=== PATIENT | female | born 1985 | race Caucasian/White ===

== ENCOUNTER 2017-04-25 10:08 | Inpatient (IN) | payer OTHER, BC ==
[2017-04-25 11:18] LABS: ADD MAN DIFF? NO
[2017-04-25 11:33] LABS: WHITE BLOOD COUNT 8.3 10^3/ul (4.8-10.8)
[2017-04-25 11:33] LABS: BASOPHILS % 0.4 % (0.0-2.0); EOSINOPHILS # 0.1 10^3/ul (0.0-0.5); HEMATOCRIT 31.6 % (37.0-47.0); HEMOGLOBIN 10.6 g/dl (12.0-16.0); LYMPHOCYTES # 1.9 10^3/ul (0.8-2.9); LYMPHOCYTES % 22.4 % (15.0-51.0); MEAN CORPUSCULAR HEMOGLOBIN 28.4 pg (29.0-33.0); MEAN CORPUSCULAR HGB CONC 33.5 g/dl (32.0-37.0); MEAN CORPUSCULAR VOLUME 84.7 fl (82.0-101.0); MEAN PLATELET VOLUME 10.8 fl (7.4-10.4); MONOCYTE # 0.8 10^3/ul (0.3-0.9); MONOCYTES % 9.1 % (0.0-11.0); NEUTROPHIL # 5.5 10^3/ul (1.6-7.5); PLATELET COUNT 183 10^3/UL (140-415); RED BLOOD COUNT 3.73 10^6/ul (4.20-5.40); RED CELL DISTRIBUTION WIDTH 14.8 % (11.5-14.5)
[2017-04-25 11:45] LABS: INR 0.91; PARTIAL THROMBOPLASTIN TIME 29.7 Sec (25.0-35.0); PROTIME 12.3 Sec (11.9-14.9)
[2017-04-25 12:05] LABS: ALANINE AMINOTRANSFERASE 30 IU/L (13-69); ALBUMIN 3.5 g/dl (3.3-4.9); ALBUMIN/GLOBULIN RATIO 0.97; ALKALINE PHOSPHATASE 145 IU/L (42-121); ANION GAP 11 (8-16); ASPARTATE AMINO TRANSFERASE 23 IU/L (15-46); BILIRUBIN,INDIRECT 0.2 mg/dl (0-1.1); BILIRUBIN,TOTAL 0.2 mg/dl (0.2-1.3); BLOOD UREA NITROGEN 7 mg/dl (7-20); CALCIUM 9.3 mg/dl (8.4-10.2); CARBON DIOXIDE 25 mmol/L (21-31); CHLORIDE 107 mmol/L (97-110); CREATININE 0.76 mg/dl (0.44-1.00); GLUCOSE 84 mg/dl (70-220); POTASSIUM 4.1 mmol/L (3.5-5.1); SODIUM 139 mmol/L (135-144); TOTAL PROTEIN 7.1 g/dl (6.1-8.1); URIC ACID 3.9 mg/dl (3.1-7.9)
[2017-04-25 13:23] LABS: COLLECTION PERIOD 24 hrs
[2017-04-25 13:25] LABS: VOLUME 3200 mls
[2017-04-25 13:37] LABS: COLLECTION PERIOD 24 hrs; CREATININE,URINE RANDOM 37.64 mg/dl (20-320); VOLUME 3400 ml/24hrs
[2017-04-25 13:39] LABS: CREATININE CLEARANCE 116.9 mls/min (84.0-162.0); SCRET 0.76 mg/dl (0.44-1.00)
[2017-04-25] MEDS ORDERED: MISOPROSTOL 200 MCG TAB PR ×2 (14:30→20:30)
[2017-04-25] MEDS ORDERED: OXYTOCIN 30 UNITS/LR 500 ML IV ×3 (14:30→21:30)
[2017-04-25] MEDS ORDERED: METHYLERGONOVINE 0.2 MG INJ IM ×2 (14:30→20:30)
[2017-04-25] MEDS ORDERED: CARBOPROST 250 MCG INJ IM ×2 (14:30→20:30)
[2017-04-25] MEDS ORDERED: CEFAZOLIN 2 GM/50 ML (PMX) 50 ML IVPB (14:30)
[2017-04-25] MEDS: SOD CHLORIDE 0.9% 1,000 ML IV (15:15)
[2017-04-25 18:14] LABS: HEPATITIS B SURFACE ANTIGEN NEGATIVE (NEGATIVE)
[2017-04-25] MEDS: LACTATED RINGER'S 1,000 ML IV ×2 (19:24→20:23)
[2017-04-25] MEDS ORDERED: morphine SULFATE/PF (10 MG/10 ML) INJ (20:11)
[2017-04-25] MEDS ORDERED: METOCLOPRAMIDE 10 MG INJ (20:12)
[2017-04-25] MEDS ORDERED: ONDANSETRON 4 MG INJ (20:12)
[2017-04-25] MEDS ORDERED: KETOROLAC 30 MG INJ (20:12)
[2017-04-25] MEDS: OXYTOCIN 30 UNITS/LR 500 ML IV ×2 (20:23→21:36)
[2017-04-25] MEDS ORDERED: NA PHOSPHATE/BIPHOS 133 ML ENEMA PR (20:30)
[2017-04-25] MEDS: CEFAZOLIN 2 GM/50 ML (PMX) 50 ML IVPB (20:30)
[2017-04-25] MEDS ORDERED: HYDROCODONE/APAP (5/325) TAB PO (20:30)
[2017-04-25] MEDS ORDERED: METHYLERGONOVINE 0.2 MG TAB PO (20:30)
[2017-04-25] MEDS ORDERED: LANOLIN 7 GM TUBE TOP (20:30)
[2017-04-25] MEDS: LABETALOL 100 MG TAB PO (21:00)
[2017-04-25] MEDS: SENNA/DOCUSATE NA (8.6MG/50MG) TAB PO (21:00)
[2017-04-25] MEDS ORDERED: EPHEDrine SULFATE 50 MG/5 ML SYG (21:30)
[2017-04-25] MEDS ORDERED: ONDANSETRON 4 MG INJ IV ×2 (22:00)
[2017-04-25] MEDS: IBUPROFEN 800 MG TAB PO (22:00)
[2017-04-25] MEDS ORDERED: morphine 2 MG INJ IV ×2 (22:00)
[2017-04-25] MEDS ORDERED: morphine (1 MG/ML) 10ML SYRINGE IV ×3 (22:00)
[2017-04-25] MEDS ORDERED: NALOXONE (0.4 MG/ML) INJ IV (22:00)
[2017-04-25] MEDS ORDERED: morphine 4 MG/ML VIAL IV (22:00)
[2017-04-25] MEDS: DIPHENHYDRAMINE 50 MG INJ IV (23:32)
[2017-04-25] MEDS: KETOROLAC 30 MG INJ IV (23:33)
[2017-04-26] MEDS: LACTATED RINGER'S 1,000 ML IV ×3 (04:52→20:23)
[2017-04-26] MEDS: CEFAZOLIN 2 GM/50 ML (PMX) 50 ML IVPB ×3 (04:58→20:40)
[2017-04-26] MEDS: KETOROLAC 30 MG INJ IV ×3 (05:15→18:05)
[2017-04-26] MEDS: DIPHENHYDRAMINE 50 MG INJ IV (05:38)
[2017-04-26] MEDS: IBUPROFEN 800 MG TAB PO ×3 (06:00→22:09)
[2017-04-26] MEDS: SENNA/DOCUSATE NA (8.6MG/50MG) TAB PO ×2 (08:43→20:40)
[2017-04-26] MEDS: GUAIFENESIN/DM (SR) TAB PO (08:43)
[2017-04-26 08:50] LABS: ADD MAN DIFF? NO
[2017-04-26] MEDS: LABETALOL 100 MG TAB PO ×2 (08:53→20:40)
[2017-04-26 09:02] LABS: BASOPHILS % 0.3 % (0.0-2.0); EOSINOPHILS # 0.1 10^3/ul (0.0-0.5); EOSINOPHILS % 0.7 % (0.0-7.0); HEMATOCRIT 30.2 % (37.0-47.0); HEMOGLOBIN 10.2 g/dl (12.0-16.0); LYMPHOCYTES # 2.1 10^3/ul (0.8-2.9); LYMPHOCYTES % 27.9 % (15.0-51.0); MEAN CORPUSCULAR HEMOGLOBIN 28.4 pg (29.0-33.0); MEAN CORPUSCULAR HGB CONC 33.8 g/dl (32.0-37.0); MEAN CORPUSCULAR VOLUME 84.1 fl (82.0-101.0); MEAN PLATELET VOLUME 10.9 fl (7.4-10.4); MONOCYTE # 0.5 10^3/ul (0.3-0.9); MONOCYTES % 5.9 % (0.0-11.0); NEUTROPHIL # 4.9 10^3/ul (1.6-7.5); NEUTROPHILS % 64.4 % (39.0-77.0); PLATELET COUNT 177 10^3/UL (140-415); RED BLOOD COUNT 3.59 10^6/ul (4.20-5.40); RED CELL DISTRIBUTION WIDTH 14.5 % (11.5-14.5)
[2017-04-26 09:02] LABS: WHITE BLOOD COUNT 7.6 10^3/ul (4.8-10.8)
[2017-04-26 15:10] LABS: RAPID PLASMA REAGIN NONREACTIVE (NR)
[2017-04-26] MEDS: PROMETHAZINE/CODEINE 5ML CUP PO (19:22)
[2017-04-26] MEDS: AZITHROMYCIN 250 MG TAB PO (20:39)
[2017-04-26] MEDS: HYDROCODONE/APAP (5/325) TAB PO (22:09)
[2017-04-26] MEDS: DIPHENHYDRAMINE 25 MG CAP PO (22:10)
[2017-04-26] MEDS: SALINE 0.65% 45 ML NAS SPRAY NASAL (22:11)
[2017-04-27] MEDS: GUAIFENESIN/DM (SR) TAB PO ×3 (01:11→20:32)
[2017-04-27] MEDS: LACTATED RINGER'S 1,000 ML IV ×3 (04:23→20:23)
[2017-04-27] MEDS: IBUPROFEN 800 MG TAB PO ×3 (05:36→22:06)
[2017-04-27] MEDS: AZITHROMYCIN 250 MG TAB PO (08:53)
[2017-04-27] MEDS: SENNA/DOCUSATE NA (8.6MG/50MG) TAB PO ×2 (09:00→21:00)
[2017-04-27] MEDS: LABETALOL 100 MG TAB PO ×2 (09:00→20:31)
[2017-04-27] MEDS: PROMETHAZINE/CODEINE 5ML CUP PO (16:34)
[2017-04-28] MEDS: IBUPROFEN 800 MG TAB PO (05:31)
[2017-04-28] MEDS: SENNA/DOCUSATE NA (8.6MG/50MG) TAB PO (09:00)
[2017-04-28] MEDS: GUAIFENESIN/DM (SR) TAB PO (10:09)
[2017-04-28] MEDS: LABETALOL 100 MG TAB PO (10:10)
[2017-04-28] MEDS: AZITHROMYCIN 250 MG TAB PO (10:10)
[2017-04-28] MEDS: DIPHTH/TET/ACEL PERTUSS (ADULT) 0.5 ML VIAL IM* (11:14)
== END 2017-04-28 13:10 | disposition home or self-care (01) | DRG 766 ==
LOC: OBT 10:08 → PP1 04-26 00:06 → L-D 10:08 → OBT 14:06 → L-D 14:07
PROC: 10D00Z1 Extraction of Products of Conception, Low, Open Approach (ICD-10-PCS; principal; 2017-04-25 15:15)
PROC: 3E033VJ Introduction of Other Hormone into Peripheral Vein, Percutaneous Approach (ICD-10-PCS; 2017-04-25 15:15)
DX: O34.211 Maternal care for low transverse scar from previous cesarean delivery (principal); E66.01 Morbid (severe) obesity due to excess calories; Z37.0 Single live birth; O14.94 Unspecified pre-eclampsia, complicating childbirth; O99.214 Obesity complicating childbirth; Z68.31 Body mass index [BMI] 31.0-31.9, adult; Z3A.37 37 weeks gestation of pregnancy
CPT/HCPCS: 76818; 80053; 82575; 84156; 84560; 85025; 85384; 85610; 85730; 86592; 86850; 86900; 86901; 87340; 90715; 94760; 99464